=== PATIENT | female | born 1940 | race Caucasian/White ===

== ENCOUNTER → 2018-04-25 10:47 | Outpatient (CLI) | payer MEDICARE, SELFPAY ==
--- NOTE | 2018-04-25 | DI.MG.S_ITS ---
BILATERAL DIGITAL SCREENING MAMMOGRAM 3D/2D WITH CAD: 04/25/2018 CLINICAL: Routine screening. Comparison is made to exams dated: 04/18/2017 mammogram, 02/01/2016 mammogram, and 01/27/2015 mammogram - [facility]. There are scattered fibroglandular elements in both breasts. Current study was also evaluated with a Computer Aided Detection (CAD) system. There are benign calcifications in the left breast. No significant masses, calcifications, or other findings are seen in either breast. There has been no significant interval change. IMPRESSION: There is no mammographic evidence of malignancy. A 1 year screening mammogram is recommended. This exam was interpreted at Station ID: [id number]. NOTE: For mammograms, a report in lay terms will be sent to the patient. Approximately 15% of breast malignancies will not be visualized mammographically. In the management of a palpable breast mass, a negative mammogram must not discourage biopsy of a clinically suspicious lesion. Electronically Signed By: Mary de leon/merlyn:04/25/2018 16:01:54 letter sent: Normal Exam ACR BI-RADS Category 2: Benign Finding(s) 3342F
== END ==
PROVIDERS: Family Provider Family Medicine; PCP Family Medicine; Visit Provider Family Medicine
DX: Z12.31 Encounter for screening mammogram for malignant neoplasm of breast (principal)
CPT/HCPCS: 77063; 77067

== ENCOUNTER → 2019-04-10 16:21 | Outpatient (CLI) | payer MEDICARE, SELFPAY ==
--- NOTE | 2019-04-10 | DI.RAD.S_ITS ---
PROCEDURE: XR CERVICAL SPINE 2V OR 3V INDICATIONS: NECK PAIN TECHNIQUE: 3 view(s) of the cervical spine were acquired. COMPARISON: None. FINDINGS: Bones: No fractures or dislocations to the C6 level. Trace anterolisthesis of C4 on C5. Multilevel degenerative endplate sclerosis and spurring. Diffuse facet arthropathy. Mild narrowing of the C5-C6 disc space. Mild levocurvature. The lateral masses of C1 appear intact on the odontoid view. No suspicious bony lesions. Soft tissues: No prevertebral soft tissue swelling. IMPRESSION: Mild cervical spondylosis most pronounced at C5-C6. Diffuse facet arthropathy. Mild levocurvature. Dictated by: Hector Erazo M.D. on 04/11/2019 at 9:38 Approved by: Hector Erazo M.D. on 04/11/2019 at 9:41
== END ==
PROVIDERS: PCP Family Medicine; Visit Provider Family Medicine
DX: M54.2 Cervicalgia (principal); M47.812 Spondylosis without myelopathy or radiculopathy, cervical region
CPT/HCPCS: 72040

== ENCOUNTER → 2019-05-10 09:56 | Outpatient (CLI) | payer MEDICARE, SELFPAY ==
--- NOTE | 2019-05-10 | DI.MG.S_ITS ---
BILATERAL DIGITAL SCREENING MAMMOGRAM 3D/2D WITH CAD: 05/10/2019 CLINICAL: Routine screening. Comparison is made to exams dated: 04/25/2018 mammogram, 04/18/2017 mammogram, and 02/01/2016 mammogram - [facility]. There are scattered fibroglandular elements in both breasts. Current study was also evaluated with a Computer Aided Detection (CAD) system. There are benign calcifications in the left breast. No significant masses, calcifications, or other findings are seen in either breast. There has been no significant interval change. IMPRESSION: There is no mammographic evidence of malignancy. A 1 year screening mammogram is recommended. This exam was interpreted at Station ID: [id number]. NOTE: For mammograms, a report in lay terms will be sent to the patient. Approximately 15% of breast malignancies will not be visualized mammographically. In the management of a palpable breast mass, a negative mammogram must not discourage biopsy of a clinically suspicious lesion. Electronically Signed By: Roger cheng/merlyn:05/13/2019 19:18:23 letter sent: Normal Exam ACR BI-RADS Category 2: Benign Finding(s) [id number]
== END ==
PROVIDERS: PCP Family Medicine; Visit Provider Family Medicine
DX: Z12.31 Encounter for screening mammogram for malignant neoplasm of breast (principal)
CPT/HCPCS: 77063; 77067

== ENCOUNTER 2020-03-12 13:19 | Observation (INO) | payer MEDICARE, SELFPAY ==
[2020-03-12] VITALS (36 sets, daily range): BP systolic 100–171; BP diastolic 58–101; PULSE 55–143; RESP 8–36; TEMP 36.4–37.2; O2SAT 93–98; BMI 29.2
--- NOTE | 2020-03-12 13:32 | ED.ARRPALP ---
HPI - Arrhythmia/Palpitations General Chief Complaint: Arrhythmia/Palpitations Stated Complaint: heart palpitations Time Seen by Provider: 03/12/20 13:23 Source: patient Mode of arrival: Ambulatory Limitations: no limitations History of Present Illness HPI narrative: 79-year-old female without a history of atrial fibrillation. Does have a history of [id number]-txbuorncy diabetes and also high cholesterol here for evaluation of a rapid heart rate. She states that over the past several days/week she has had occasions where she feels like her heart is beating fast and skipping beats. She has not had any other symptoms associated with this to include chest pain or shortness of breath or lightheaded. She states that normally the symptoms last short period of time. She states she is not sure she is back into a normal rhythm after this but states she does not feel the fast heart rate. She went to bed last night feeling fine. Woke up this morning feeling fine and then about 0900 hours started feeling like her heart was beating fast. She denies any chest pain or shortness of breath. Was different about this episode is that it has not improved with time like prior episodes. Related Data Home Medications Medication Instructions Recorded Confirmed VITAMIN D (Vitamin D3) #0 12/26/15 lisinopril #0 12/26/15 venlafaxine [Effexor XR] #0 12/26/15 aspirin #0 08/02/17 atorvastatin [Lipitor] #0 08/02/17 metformin [Fortamet] 150 mg #0 08/02/17 Previous Rx's Medication Instructions Recorded cyclobenzaprine 5 mg PO Q8HP PRN #10 tab 12/26/15 hydrocodone-acetaminophen [[place]] 1 tab PO Q6HP PRN #10 tab 12/26/15 Allergies Allergy/AdvReac Type Severity Reaction Status Date / Time No Known Drug Allergies Allergy Verified 03/12/20 13:27 Review of Systems Constitutional Constitutional: Denies fever(s) and Denies headache(s) ENT Ears, Nose, Mouth, and Throat: Denies headache(s) Cardiovascular Cardiovascular: Denies chest pain, Reports rapid heart rate, Reports irregular heart rhythm and Denies dyspnea Respiratory Respiratory: Denies cough and Denies dyspnea Gastrointestinal Gastrointestinal: Denies abdominal pain, Denies nausea and Denies vomiting Genitourinary Genitourinary: Denies dysuria Genitourinary: Denies dysuria Musculoskeletal Musculoskeletal: Denies arthralgias and Denies myalgias Integumentary/Breasts Skin/Breast: Denies lesions and Denies rash Neurologic Neurologic: Denies behavioral changes and Denies headache(s) Psychiatric Psychiatric: Denies behavioral changes and Denies depression Patient History Medical History Diabetes (Acute) High cholesterol (Acute) Social History Smoking Status: Unknown if ever smoked Smoking Status: Unknown if ever smoked alcohol intake frequency: 0-2 drinks per day Substance Use Type: does not use Exam Initial Vital Signs Initial Vital Signs: Vital Signs Temperature 99.0 F 03/12/20 13:20 Pulse Rate 139 H 03/12/20 13:20 Respiratory Rate 16 03/12/20 13:20 Blood Pressure 139/95 H 03/12/20 13:20 Pulse Oximetry 95 03/12/20 13:20 Const General: cooperative, comfortable and well developed Limitations: mental status not altered HENAZ Head: normal to inspection and normocephalic Resp Effort & Inspection: normal respiratory effort Auscultation: clear to auscultation bilaterally Cardio Rate: tachycardic Rhythm: abnormal rhythm Pulses: radial pulses present GI Inspection: non-distended Palpation: soft Skin Lesions: no lesions Rashes: no rashes Neuro General: patient alert and patient awake Cognition: normal cognition Speech: speech normal Extrem General: normal to inspection and capillary refill normal Psych Appearance: grossly normal and well kempt Scores GCS [place] coma scale eye opening: Spontaneous [place] coma scale verbal response: Orientated [place] coma scale motor response: Obey commands [place] coma scale total score: 15 Course Orders Ordered: ED Orders 03/12/20 13:23 EKG-12 Lead Stat 03/12/20 13:28 Complete Blood Count AUTO DIFF Stat Comprehensive Metabolic Panel Stat Lipase Stat 03/12/20 14:51 COVID19 -ED/INPAT/OR/L&D Stat DILTIAZEM (Diltiazem 125 Mg/125 Ml-D5w) 125 mg in 125 mls @ 5 mls/hr IV TITRATE KARIME; Protocol Last Admin: 03/12/20 15:13 Dose: 5 mg/hr, 5 mls/hr Documented by: JOSEPH Discontinued Medications Diltiazem HCl (Cardizem) 10 mg IV NOW ONE Stop: 03/12/20 14:43 Last Admin: 03/12/20 15:12 Dose: 10 mg Documented by: JOSEPH Metoprolol Tartrate (Lopressor) 5 mg IV NOW ONE Stop: 03/12/20 13:34 Last Admin: 03/12/20 13:42 Dose: 5 mg Documented by: JOSEPH Metoprolol Tartrate (Lopressor) 25 mg PO NOW ONE Stop: 03/12/20 14:07 Last Admin: 03/12/20 14:12 Dose: 25 mg Documented by: JOSEPH Vital Signs Vital signs: Vital Signs - 8 hr 03/12/20 13:20 03/12/20 13:25 03/12/20 13:30 Temperature 99.0 F Pulse Rate 139 H 139 H 137 H Respiratory Rate 16 12 8 L Blood Pressure 139/95 H 153/84 H Pulse Oximetry 95 95 97 03/12/20 13:42 03/12/20 13:47 03/12/20 13:50 Temperature Pulse Rate 143 H 134 H 131 H Respiratory Rate 12 19 20 Blood Pressure 171/72 H 136/73 146/91 H Pulse Oximetry 95 94 96 03/12/20 13:55 03/12/20 14:00 03/12/20 14:30 Temperature Pulse Rate 128 H 129 H 124 H Respiratory Rate 14 19 Blood Pressure 146/91 H 151/64 H 153/73 H Pulse Oximetry 94 93 03/12/20 15:00 03/12/20 15:01 Temperature Pulse Rate 126 H 127 H Respiratory Rate 8 L 13 Blood Pressure 132/72 Pulse Oximetry 94 94 MDM - Arrhythmia/Palpitations Medical Records Attestation: I reviewed the patient's medical records. Lab Data Attestation: I reviewed the patient's lab results. Result diagrams: 03/12/20 13:28 03/12/20 13:28 Labs: Lab Results 03/12/20 03/12/20 Range/Units 13:28 13:28 WBC 8.4 (4.5-11.0) X10^3/uL RBC 4.45 (4.0-5.2) X10^6/uL Hgb 13.8 (12.0-16.0) g/dL Hct 41.5 (36-46) % MCV 93.2 (80-100) fL MCH 31.1 (26-34) PG MCHC 33.3 (30-36) % RDW 13.1 (11.6-14.8) % Plt Count 257 (150-400) X10^3/uL Neut % (Auto) 45.4 L (50-75) % Lymph % (Auto) 39.2 (25-40) % [place] % (Auto) 8.9 (3-14) % Eos % (Auto) 5.6 H (2-4) % Baso % (Auto) 0.9 (0-2) % Neut # (Auto) 3800 (3256-4603) /uL Lymph # (Auto) 3300 (9484-1060) /uL [place] # (Auto) 800 (0-900) /uL Eos # (Auto) 500 H (0-450) /uL Baso # (Auto) 100 (0-100) /uL Sodium 142 (137-145) mmol/L Potassium 4.1 (3.4-5.1) mmol/L Chloride 107 (98-107) mmol/L Carbon Dioxide 26 (22-32) mmol/L BUN 15 (7-17) mg/dL Creatinine 0.66 (0.52-1.04) mg/dL Estimated GFR > 60.0 (>60) mL/min BUN/Creatinine Ratio 22.7 H (6-22) Glucose 123 H (80-110) mg/dL Calcium 9.4 (8.4-10.2) mg/dL Total Bilirubin 0.3 (0.2-1.3) mg/dL AST 26 (14-36) IU/L ALT 22 (<35) IU/L Alkaline Phosphatase 83 (38-126) U/L Total Protein 7.5 (6.3-8.2) g/dL Albumin 4.4 (3.5-5.0) g/dL Globulin 3.1 (1.7-4.1) g/dL Albumin/Globulin Ratio 1.4 (1.0-2.8) Lipase 59 (23-300) U/L ECG Data Attestation: I personally reviewed and interpreted this ECG as follows: Prior ECG tracings: not available for review Interpretation: AFib Ventricular rate 133 Normal axis Normal QRS Normal QTC Nonspecific ST T wave changes MDM Narrative Medical decision making narrative: Patient arrived AFib with RVR with a rate in the 140s to 150s. Was not hypotensive. No chest pain shortness of breath or lightheadedness. Patient seems to have had symptoms off and on for the past couple days although she is not completely sure that she has been completely symptom free. She states that this morning around 0900 hours she felt like her heart was beating fast head did not improve like it normally does. She has never had atrial fibrillation in the past. She was given IV metoprolol which decreased her heart rate to the low 100s. She was then given oral metoprolol and her heart rate went back up into the 120s 130s. She remained asymptomatic other than the palpitations. She was then started on a Cardizem drip. I discussed the case with Dr. Dougherty who is on-call for the patient's primary provider. Who will admit for further evaluation and treatment. I discussed the admission with the patient. She expressed understanding and agreement. Critical Care Time Critical Care Time Critical Care Time: Yes Total Critical Care Time: 35 Attestation: The high probability of a clinically significant, sudden or life threatening deterioration of the cardiovascular system(s) required my full and direct attention, intervention and personal management. The aggregate critical care time was [35] minutes. This time is in addition to time spent performing reported procedures but includes the following: [X] Data Review and interpretation [X] Patient assessment and monitoring of vital signs [X] Documentation [X] Medication orders and management Discharge Plan Departure Patient Disposition: Admitted As Inpatient Clinical Impression: Atrial fibrillation with RVR Admit Date/Time: 03/12/20 15:03 Admit Provider: Scottie Dougherty
[2020-03-12 13:38] LABS: Add Manual Diff / Slide Review NO; Basophils Absolute Auto 100 /uL (0-100); Basophils Percent Auto 0.9 % (0-2); Eosinophils Absolute Auto 500 /uL (0-450); Eosinophils Percent Auto 5.6 % (2-4); Hematocrit 41.5 % (36-46); Hemoglobin 13.8 g/dL (12.0-16.0); Lymphocytes Absolute Auto 3300 /uL (1100-4500); Lymphocytes Percent Auto 39.2 % (25-40); Mean Corpuscular HGB Conc 33.3 % (30-36); Mean Corpuscular Hemoglobin 31.1 PG (26-34); Mean Corpuscular Volume 93.2 fL (80-100); Monocytes Absolute Auto 800 /uL (0-900); Monocytes Percent Auto 8.9 % (3-14); Neutrophils Absolute Auto 3800 /uL (1500-7000); Neutrophils Percent Auto 45.4 % (50-75); Platelet Count 257 X10^3/uL (150-400); Red Blood Cell Count 4.45 X10^6/uL (4.0-5.2); Red Cell Distribution Width 13.1 % (11.6-14.8); White Blood Cell Count 8.4 X10^3/uL (4.5-11.0)
[2020-03-12] MEDS: METOPROLOL TARTRATE 5 MG/5 ML INJ IV (13:42)
[2020-03-12 13:49] LABS: Alanine Aminotransferase 22 IU/L (<35); Albumin 4.4 g/dL (3.5-5.0); Albumin Globulin Ratio 1.4 (1.0-2.8); Alkaline Phosphatase 83 U/L (38-126); Aspartate Aminotransferase 26 IU/L (14-36); BUN Creatinine Ratio 22.7 (6-22); Bilirubin Total 0.3 mg/dL (0.2-1.3); Blood Urea Nitrogen 15 mg/dL (7-17); Calcium 9.4 mg/dL (8.4-10.2); Carbon Dioxide 26 mmol/L (22-32); Chloride 107 mmol/L (98-107); Estimated Glomerular Filt Rate > 60.0 mL/min (>60); Globulin 3.1 g/dL (1.7-4.1); Glucose 123 mg/dL (80-110); HEMOLYSIS < 15 (0-50); Lipase 59 U/L (23-300); Potassium 4.1 mmol/L (3.4-5.1); Sodium 142 mmol/L (137-145); Total Protein 7.5 g/dL (6.3-8.2)
[2020-03-12] MEDS: METOPROLOL IR 25 MG TABLET PO (14:12)
[2020-03-12] MEDS: dilTIAZem 5 MG/ML SDV 10 MG IV (15:12)
[2020-03-12] MEDS: DILTIAZEM 125 MG/125 ML PIGGYBACK IV (15:13)
[2020-03-12 16:22] LABS: COVID19 -Nasal RAPID Negative (Negative)
[2020-03-12] MEDS: SODIUM CHLORIDE 0.9% 500 ML 21 ML IV (17:27)
--- NOTE | 2020-03-12 20:03 | PC.NURSE ---
Admission Note: Pt admitted from ER for A-fib RVR, arrived on diltiazem gtts at 5 mg/hr. Pt with HR initially 90-130, now 70s-80s. Pt with VSS. RA, SPO2 96%. Denies SOB, Chest pain or pressure. Pt stood for bedside commode with HR up to 130. Pt with good uop. Denies nausea, tolerating diet. Pt otherwise with no complaints. Will continue to monitor, notify MD with changes.
--- NOTE | 2020-03-12 20:14 | P.HP_ITS ---
History of Present Illness History of Present Illness Date Patient Seen: 03/12/20 Time Patient Seen: 20:14 Date of Onset of Symptoms: 03/12/20 Chief complaint: heart palpitations Narrative: Patient a 79-year-old white female patient of Dr. Knox is her time covering for who presents today to the emergency room for increased heart rate. Palpitations. Patient has noticed over the last 2-3 weeks that she has been having intermittent palpitations. She has not had any chest pain shortness of breath fevers chills or other change. She has been feeling well. She has been walking for half an hour every day period with some hills. Without problems. She does have a history of palpitations many years ago which got worked up and was found to be negative. She also had several treadmills a few years ago which apparently were normal. She has otherwise had no cardiac disease. She has not had any fevers or chills. No cough. No shortness of breath. No orthopnea. No PND. This morning she thought it would go way like it seemed like it had been doing intermittently through the last 2-3 weeks but after 2 hours of fast heart rate she decided she would come to the hospital. It was noted she was in atrial fibrillation. She has otherwise been feeling well. She has had no other changes since she has been here patient does have history of ventricular hypertrophy per trophy in her left side but she has never felt like that is been true. Past medical history: Obstructive sleep apnea Type 2 diabetes Hypertension Hyperlipidemia GERD Depression Coronary artery disease family history Past surgical history: Bilateral tubal ligation Tonsillectomy and adenoidectomy Left bunionectomy with screw Left parotid gland mass biopsy negative Meniscus surgery bilateral knees Patient History Medical History Diabetes (Acute) High cholesterol (Acute) Family & Social History Social History: household members spouse Prior Living Arrangements House Safety & Behavioral: Feels Safe in Current Yes Environment Been Physically Hurt or No Threatened By a Person Suicidal Ideation Description None Tobacco & Substance use: Smoking Status Never smoker alcohol intake frequency 0-2 drinks per day Substance Use Type does not use Meds Home Medications and Allergies Home Medications Medication Instructions Recorded Confirmed Type VITAMIN D (Vitamin D3) 1,000 unit PO BID #0 12/26/15 03/12/20 History lisinopril 10 mg PO DAILY #0 12/26/15 03/12/20 History venlafaxine [Effexor XR] 187.5 mg PO DAILY #0 12/26/15 03/12/20 History atorvastatin [Lipitor] 10 mg PO QPM #0 08/02/17 03/12/20 History metformin [Fortamet] 150 mg PO BID #0 08/02/17 03/12/20 History vit C-vit H-Ti-Lo-lutein-zeax 1 tab PO BID 03/12/20 03/12/20 History [ICaps AREDS2 (copper citrate)] Allergies Allergy/AdvReac Type Severity Reaction Status Date / Time No Known Drug Allergies Allergy Verified 03/12/20 13:27 Review of Systems Review of Systems ROS: Yes All systems reviewed with the patient and are negative except as otherwise documented Exam Vital Signs (past 8 hours): - 03/12/20 13:20 03/12/20 13:25 03/12/20 13:30 Temperature 99.0 F Pulse Rate 139 H 139 H 137 H Respiratory Rate 16 12 8 L Blood Pressure 139/95 H 153/84 H Pulse Oximetry 95 95 97 03/12/20 13:42 03/12/20 13:47 03/12/20 13:50 Temperature Pulse Rate 143 H 134 H 131 H Respiratory Rate 12 19 20 Blood Pressure 171/72 H 136/73 146/91 H Pulse Oximetry 95 94 96 03/12/20 13:55 03/12/20 14:00 03/12/20 14:30 Temperature Pulse Rate 128 H 129 H 124 H Respiratory Rate 14 19 Blood Pressure 146/91 H 151/64 H 153/73 H Pulse Oximetry 94 93 03/12/20 15:00 03/12/20 15:01 03/12/20 15:21 Temperature Pulse Rate 126 H 127 H 90 Respiratory Rate 8 L 13 12 Blood Pressure 132/72 100/70 Pulse Oximetry 94 94 93 03/12/20 15:30 03/12/20 16:10 03/12/20 19:41 Temperature 97.8 F 97.5 F L Pulse Rate 103 H 125 H 76 Respiratory Rate 12 18 17 Blood Pressure 113/87 125/85 115/76 Pulse Oximetry 97 95 94 Oxygen Delivery Method Room Air Narrative Exam Narrative: Alert elderly female lying comfortably in bed no acute distress. HEENT exam mucous membranes moist. Eyes are unremarkable. Neck supple without adenopathy JVD or bruits. Lungs are clear. Heart is irregular rhythm with cont rolled rate no murmurs clicks rubs or gallops. Abdomen is soft positive bowel sounds nontender. Extremities without cyanosis clubbing edema. Neurologic exam is completely normal. Psychologically interactive appropriate unremarkable says skin shows no rash Objective Labs Result Diagrams: 03/12/20 13:28 03/12/20 13:28 Labs: Laboratory Results - last 24 hr 03/12/20 03/12/20 03/12/20 13:28 13:28 15:30 WBC 8.4 RBC 4.45 Hgb 13.8 Hct 41.5 MCV 93.2 MCH 31.1 MCHC 33.3 RDW 13.1 Plt Count 257 Neut % (Auto) 45.4 L Lymph % (Auto) 39.2 [place] % (Auto) 8.9 Eos % (Auto) 5.6 H Baso % (Auto) 0.9 Neut # (Auto) 3800 Lymph # (Auto) 3300 [place] # (Auto) 800 Eos # (Auto) 500 H Baso # (Auto) 100 Sodium 142 Potassium 4.1 Chloride 107 Carbon Dioxide 26 BUN 15 Creatinine 0.66 Estimated GFR > 60.0 BUN/Creatinine Ratio 22.7 H Glucose 123 H Calcium 9.4 Total Bilirubin 0.3 AST 26 ALT 22 Alkaline Phosphatase 83 Total Protein 7.5 Albumin 4.4 Globulin 3.1 Albumin/Globulin Ratio 1.4 Lipase 59 COVID-19 PCR Negative Assessment & Plan Assessment & Plan narrative: Atrial fibrillation new onset with RVR. Controlled rate with low-dose Cardizem. Will switch over to oral today and see if we can get that controlled. Switch off of IV as soon as possible. Will begin Xarelto 20 mg for stroke risk will obtain echo. Patient has had TSH and other labs no other obvious source. Will see what workup shows. I do not think will be able to convert her because it is unclear how long she has been on it will have to wait till we get her anticoagulated for 6 weeks. Will need Cardiology consult but I do not think we need that at this time. Can do that as an outpatient. She understands questions answered Type 2 diabetes. Continue current medicine. Depression. Will continue usual Effexor. Sleep apnea. Does not have usual CPAP will watch closely and follow. Code status full. DVT prophylaxis will be started on Xarelto in compression hose. GI prophylaxis not needed at this time. Disposition. Will hopefully get her off IV. May convert. Depends on how things go. May be discharged tomorrow r Quality VTE Deep Vein Thrombosis/Pulmonary Embolism Present on Admission: No
[2020-03-12] MEDS: ATORVASTATIN 20 MG TABLET 10 MG PO (21:22)
[2020-03-12] MEDS: dilTIAZem CD 120 MG CAP PO (21:22)
[2020-03-13] VITALS (31 sets, daily range): BP systolic 109–138; BP diastolic 51–87; PULSE 50–76; RESP 8–35; TEMP 36.3–36.6; O2SAT 88–97
[2020-03-13 05:02] LABS: Blood Urea Nitrogen 18 mg/dL (7-17); Calcium 9.6 mg/dL (8.4-10.2); Carbon Dioxide 34 mmol/L (22-32); Chloride 104 mmol/L (98-107); Estimated Glomerular Filt Rate > 60.0 mL/min (>60); Glucose 109 mg/dL (80-110); HEMOLYSIS < 15 (0-50); Magnesium 2.1 mg/dL (1.6-2.3); Potassium 4.8 mmol/L (3.4-5.1); Sodium 141 mmol/L (137-145)
--- NOTE | 2020-03-13 07:11 | P.PN_ITS ---
Subjective Subjective Date Patient Seen: 03/13/20 Time Patient Seen: 07:12 Interval history: Patient had an uneventful night. Rate is now controlled, in fact bradycardic. Has a good appetite this morning, no nausea or vomiting. Denies any chest pain or shortness of breath. Exam Vital Signs (past 8 hours): - 03/12/20 23:30 03/12/20 23:33 03/13/20 00:00 Temperature Pulse Rate 60 55 L 55 L Respiratory Rate 33 H Blood Pressure 136/62 Pulse Oximetry 95 97 95 03/13/20 00:01 03/13/20 00:02 03/13/20 00:30 Temperature 97.5 F L Pulse Rate 53 L 52 L 53 L Respiratory Rate 12 12 15 Blood Pressure 109/51 L 111/56 L 128/62 Pulse Oximetry 96 95 95 03/13/20 01:00 03/13/20 01:30 03/13/20 02:00 Temperature Pulse Rate 53 L 52 L 51 L Respiratory Rate 13 15 10 L Blood Pressure 120/58 L 110/56 L Pulse Oximetry 95 95 95 03/13/20 02:30 03/13/20 03:00 03/13/20 03:30 Temperature Pulse Rate 51 L 53 L 52 L Respiratory Rate 14 13 17 Blood Pressure 115/56 L Pulse Oximetry 95 93 92 03/13/20 04:00 03/13/20 05:00 03/13/20 06:00 Temperature Pulse Rate 52 L 50 L 53 L Respiratory Rate 13 8 L 13 Blood Pressure 124/56 L 130/60 128/60 Pulse Oximetry 92 Oxygen Delivery Method Room Air Oxygen Flow Rate 0 Narrative Exam Narrative: GENERAL: Alert and oriented, appearing stated age and in no acute distress. HEENT: Head normocephalic/atraumatic. Pupils equal, round, and reactive to light and accomodation. Extraocular muscles intact. Tympanic membranes clear. Nasal mucosa moist, septum midline. Oral mucosa moist, no lesions. Neck soft and supple, no lymphadenopathy. LUNGS: Clear to ausculation bilaterally, no wheezes, rhonchi or rales. CV: Irregularly irregular with bradycardic rate, no audible murmurs, rubs or gallops. ABDOMEN: Soft, non-tender, non-distended, no organomegaly. Positive bowel sounds. EXTREMITIES: No clubbing, cyanosis, or edema. NEURO: Cranial nerves II through XII grossly intact, no focal deficits. PSYCH: Alert and oriented x 3. SKIN: No concerning lesions. Objective Labs Result Diagrams: 03/12/20 13:28 03/13/20 04:22 Labs: Laboratory Results - last 24 hr 03/12/20 03/12/20 03/12/20 13:28 13:28 15:30 WBC 8.4 RBC 4.45 Hgb 13.8 Hct 41.5 MCV 93.2 MCH 31.1 MCHC 33.3 RDW 13.1 Plt Count 257 Neut % (Auto) 45.4 L Lymph % (Auto) 39.2 [place] % (Auto) 8.9 Eos % (Auto) 5.6 H Baso % (Auto) 0.9 Neut # (Auto) 3800 Lymph # (Auto) 3300 [place] # (Auto) 800 Eos # (Auto) 500 H Baso # (Auto) 100 Sodium 142 Potassium 4.1 Chloride 107 Carbon Dioxide 26 BUN 15 Creatinine 0.66 Estimated GFR > 60.0 BUN/Creatinine Ratio 22.7 H Glucose 123 H Calcium 9.4 Magnesium Total Bilirubin 0.3 AST 26 ALT 22 Alkaline Phosphatase 83 Total Protein 7.5 Albumin 4.4 Globulin 3.1 Albumin/Globulin Ratio 1.4 Lipase 59 COVID-19 PCR Negative 03/13/20 04:22 WBC RBC Hgb Hct MCV MCH MCHC RDW Plt Count Neut % (Auto) Lymph % (Auto) [place] % (Auto) Eos % (Auto) Baso % (Auto) Neut # (Auto) Lymph # (Auto) [place] # (Auto) Eos # (Auto) Baso # (Auto) Sodium 141 Potassium 4.8 Chloride 104 Carbon Dioxide 34 H BUN 18 H Creatinine 0.72 Estimated GFR > 60.0 BUN/Creatinine Ratio 25.0 H Glucose 109 Calcium 9.6 Magnesium 2.1 Total Bilirubin AST ALT Alkaline Phosphatase Total Protein Albumin Globulin Albumin/Globulin Ratio Lipase COVID-19 PCR Assessment & Plan Assessment & Plan narrative: 1. Atrial fibrillation new onset with RVR. -On cardizem drip -Xarelto 20 mg for stroke risk -Echo pending today. PLAN: As above, will switch from IV to oral cardizem today, if rate controlled, plan for discharge. Will need outpatient cardiac followup with possible planned cardioversion after 6 weeks of anticoagulation. 2. Type 2 diabetes. PLAN: Continue current medicine. 3. Hyperlipidemia PLAN: Continue home atorvastatin. 4. Depression. PLAN: Will continue usual Effexor. 5. Obstructive sleep apnea. PLAN: Does not have usual CPAP will watch closely and follow. Code status: full DVT prophylaxis: Xarelto and compression stockings. GI prophylaxis: Not needed at this time. Disposition. Hopeful for discharge today if echo reassuring and rate able to be controlled. Quality VTE Deep Vein Thrombosis/Pulmonary Embolism Present on Admission: No
[2020-03-13] MEDS: RIVAROXABAN 10 MG TABLET 20 MG PO (10:08)
[2020-03-13] MEDS: METFORMIN HCL 500 MG TABLET PO ×2 (10:10→17:05)
[2020-03-13] MEDS: dilTIAZem 30 MG TABLET PO ×2 (10:46→14:51)
[2020-03-13] MEDS: VENLAFAXINE ER 37.5 MG CAP 187.5 MG PO (10:46)
--- NOTE | 2020-03-13 12:38 | PC.NURSE ---
AM Shift Pt is comfortable in bed, tele with SB, as it has been though the night. Converted ~10pm last night per report, cardizem gtt has been off. D/t HR, new orders obtained for lower dose of carrdizem PO. Tolerating lower dose well, rate 60's at rest. Denies chest pain, no sob. Fitted for MJ hose. Echo done at bedside. Awaiting results. Indep in room.
--- NOTE | 2020-03-13 16:26 | CM.DANOTE ---
Discharge Planning/Care Management DCP: assessment: case received, EMR reviewed. Discussed in Team Rounds. Pt is a 79 year old female who admitted to care of Dr. Cohn. PCP: Dr. Philip Garcia of same clinic. Payer; Medicare and [employer]. Admission status: OBS: per [facility] GALI Nelson. Pt admitted for new onset AFib/RVR. Tests have been in process today. Pt has been up and independent in her room. Anticipate Dr. Dougherty may be in after clinic today to update pt on POC going forward. Caseload triage dictates need to defer any further assessment to DCplanning team on tomorrow, if pt has not d/c'd by then. CM Discharge Assessment Start: 03/13/20 16:25 Freq: Status: Active Protocol: Document 03/13/20 16:25 ITV (Rec: 03/13/20 16:26 ITV [id number]) Discharge Planning Assessment Advance Directives? Yes Advance Directives on File No: Requested that pt asks to bring them in History Provided By Medical Record Prior Living Arrangements House Household Members spouse Independent with ADL's Yes Is patient alert and oriented? Yes Review Status In Process
--- NOTE | 2020-03-13 17:49 | P.DS_ITS ---
History of Present Illness History of Present Illness Date Patient Seen: 03/13/20 Time Patient Seen: 17:55 Chief complaint: heart palpitations Narrative: Patient is a 79-year-old white female patient of Dr. Garcia'raheem who presents today to the emergency room for increased heart rate with palpitations. Patient has noticed over the last 2-3 weeks that she has been having intermittent palpitations. She has not had any chest pain shortness of breath fevers chills or other change. She has been feeling well. She has been walking for half an hour every day with some hills and without problems. She does have a history of palpitations many years ago which got worked up and was found to be negative. She also had several treadmills a few years ago which apparently were normal. She has otherwise had no cardiac disease. She has not had any fevers or chills. No cough. No shortness of breath. No orthopnea. No PND. This morning she thought it would go way like it seemed like it had been doing intermittently through the last 2-3 weeks but after 2 hours of fast heart rate she decided she would come to the hospital. It was noted she was in atrial fibrillation. She has otherwise been feeling well. She has had no other changes since she has been here patient does have history of ventricular hypertrophy on her left side but she has never felt like that was true. Discharge Providers Provider Date of admission: 03/12/20 15:03 Discharge Date: 03/13/20 Primary care physician: Elizabeth Garcia MD Discharge provider: Lynette Reis MD Summary Hospital Course Discharge Diagnosis: 1. Atrial fibrillation with RVR, resolved 2. Type 2 diabetes 3. Hyperlipidemia 4. Depression. 5. Obstructive sleep apnea. Hospital Course: Patient converted last night at approximately 10:00 pm and has been in sinus rhythm since that time. Oral diltiazem 120 mg ER was started last night, was changed to diltiazem IR 30 mg PO tid this morning due to bradycardia into the 40s. She has had no further low heart rates on this dose and blood pressure is stable. She will be discharged on this as well as xarelto 20 mg PO qd. Lisinopril was discontinued. Ehco was unremarkable. Plan will be for outpatient follow-up in [address] Garcia. Exam Vital Signs (past 8 hours): - 03/13/20 09:55 10/09/20 10:00 03/13/20 11:00 Temperature Pulse Rate 62 62 61 Respiratory Rate Blood Pressure 118/60 134/65 Pulse Oximetry 93 92 94 03/13/20 11:55 03/13/20 12:00 03/13/20 12:55 Temperature 97.5 F L Pulse Rate 61 61 76 Respiratory Rate Blood Pressure 138/66 Pulse Oximetry 95 94 94 03/13/20 13:00 03/13/20 13:55 03/13/20 14:00 Temperature Pulse Rate 63 63 62 Respiratory Rate Blood Pressure 135/60 133/65 Pulse Oximetry 96 92 93 03/13/20 14:51 03/13/20 16:00 Temperature 97.9 F Pulse Rate 66 63 Respiratory Rate 18 Blood Pressure 122/87 127/59 L Pulse Oximetry Oxygen Delivery Method Room Air Oxygen Flow Rate 0 Narrative Exam Narrative: GENERAL: Alert and oriented, appearing stated age and in no ac nadine distress. HEENT: Head normocephalic/atraumatic. Pupils equal, round, and reactive to light and accomodation. Extraocular muscles intact. Tympanic membranes clear. Nasal mucosa moist, septum midline. Oral mucosa moist, no lesions. Neck soft and supple, no lymphadenopathy. LUNGS: Clear to ausculation bilaterally, no wheezes, rhonchi or rales. CV: Irregularly irregular with bradycardic rate, no audible murmurs, rubs or gallops. ABDOMEN: Soft, non-tender, non-distended, no organomegaly. Positive bowel sounds. EXTREMITIES: No clubbing, cyanosis, or edema. NEURO: Cranial nerves II through XII grossly intact, no focal deficits. PSYCH: Alert and oriented x 3. SKIN: No concerning lesions. Objective Labs Result Diagrams: 03/12/20 13:28 03/13/20 04:22 Labs: Laboratory Results - last 24 hr 03/13/20 04:22 Sodium 141 Potassium 4.8 Chloride 104 Carbon Dioxide 34 H BUN 18 H Creatinine 0.72 Estimated GFR > 60.0 BUN/Creatinine Ratio 25.0 H Glucose 109 Calcium 9.6 Magnesium 2.1 Discharge Plan Discharge Plan Patient Disposition: Home Discharge orders & Medications Prescriptions: New diltiazem HCl 30 mg Tablet 30 mg PO TID Qty: 90 RF: 1 Xarelto 10 mg Tablet 20 mg PO DAILYCC Qty: 7 RF: 3 Continued venlafaxine [Effexor XR] 150 MG capsule,extended release 24hr 187.5 mg PO DAILY Qty: 0 RF: 0 VITAMIN D (Vitamin D3) 1,000 unit PO BID Qty: 0 RF: 0 atorvastatin [Lipitor] 10 MG tablet 10 mg PO QPM Qty: 0 RF: 0 metformin [Fortamet] 500 MG tablet extended release 24hr 500 mg PO BID Qty: 0 RF: 0 ICaps AREDS2 (copper citrate) 250 mg-200 unit -12.5 mg-1 mg Tablet 1 tab PO BID RF: 0 Discontinued lisinopril 10 MG tablet 10 mg PO DAILY Qty: 0 RF: 0 Follow up/Referrals: Elizabeth Garcia MD [Primary Care Provider] - Diet/Activity/Treatments Diet: Diet as Tolerated Activity: as tolerated Other treatments: Call if heart rate < 50. Return to ED for recurrent palpitations. Skin/Wound/Dressing Care Report to your healthcare provider any signs of infection, such as:: chills, fever and increased pain Visit Report/Discharge Packet Instructions: DI for Atrial Fibrillation, Rivaroxaban Visit Report Forms: Patient Portal/API, Stroke Signs & Symptoms Discharge Data Primary Care Provider: Elizabeth Garcia Attending Provider: Scottie Dougherty Admit Date/Time: 03/12/20 15:03 Quality VTE Deep Vein Thrombosis/Pulmonary Embolism Present on Admission: No
--- NOTE | 2020-03-13 19:36 | PC.NURSE ---
Discharge Note: Pt recieved sitting in bed, VSS, in NSR with HR 60s. BP WNL. Pt was on RA, SPO2 mid 90s, denied SOB, chest pain, pressure or palpitations. Pt tolerating meal, denies nausea. Pt expresses desire to be discharged home, she states that she is feeling well and has no concerns. Dr. Reis called pt and spoke to her on the phone prior to pt's discharge. Discharge orders received and pt given discharge instructions re atrial fibrillation, new medications, follow up, stroke symptoms and safety precautions at home. Pt instructed to call Dr. Reis if her HR was less than 50, to call Monday am for a follow-up appointment with Dr. Garcia, and instructed to call 911 if she were to feel sustained palpitations. Also given instructions on diet, activity and life-style modification. Pt's IV removed, telemetry removed and pt helped to ER entrance via wheelchair.
--- NOTE | 2020-03-13 20:14 | DI.ECHO.S_ITS ---
[facility]---------+ [facility] +---------+ : : [address] : [place] : : : : [id number] : : : : Phone: [phone]+ Echocardiogram Report + + :Name: MAYURI SERRATO Study Date: 03/13/2020 Height: 63 in : :[facility] Weight: 165 lb : : Gender: Female BSA: 1.8 m2 : :: 1940 Age: 79 yrs BP: 134/65 mmHg: :Reason For Study: Atrial fibrillation : :Ordering Physician: Scottie : :Ladonna Performed By: Esperanza Cook : + + Interpretation Summary The left ventricle is normal in size. The ejection fraction is estimated to be 60-65%. The right ventricle is normal in size and function. No significant valvular pathology seen. Mild atherosclerotic plaque(s) in the aortic arch. Procedure: A two-dimensional transthoracic echocardiogram with color flow and Doppler was performed. The study quality was technically adequate. Comparison is made with the echocardiogram of 08/05/2011. The patient was in normal sinus rhythm during the exam. Left Ventricle: The left ventricle is normal in size. Left ventricular wall thickness is at the upper limits of normal. There is no thrombus. The ejection fraction is estimated to be 60-65%. There has been no significant change since the previous exam. There are no focal wall motion abnormalities. Diastolic parameters suggest a relaxation abnormality of the left ventricle, consistent with probable normal filling pressures. Right Ventricle: The right ventricle is normal in size and function. Atria: Both atria are normal in size. Both atria have remained unchanged in size since the prior echo exam. There is no Doppler evidence for an interatrial shunt. Mitral Valve: The mitral valve leaflets appear borderline thickened, but open well. There is mild mitral annular calcification. There is trace mitral regurgitation. Aortic Valve: The aortic valve is trileaflet. The aortic valve opens well. The aortic valve is slightly calcified. There is no aortic valve stenosis. No aortic regurgitation is present. Tricuspid Valve: The tricuspid valve leaflets are thin and pliable. There is a trace or physiologic amount of tricuspid regurgitation. The right ventricular systolic pressure is estimated to be at least 26 mmHg based on an estimated right atrial pressure of 3 mm Hg. Pulmonic Valve: The pulmonic valve leaflets are thin and pliable; valve motion is normal. There is a trace or physiologic amount of pulmonic regurgitation. Great Vessels: The aortic root is normal size. The ascending aorta is normal in size. The aortic arch is normal in size. Mild atherosclerotic plaque(s) in the aortic arch. The IVC is of normal diameter and collapses greater than 50% with a sniff. This suggests a low right atrial pressure of 3 mm Hg. Pericardium/ Pleura There is no pericardial effusion. There is no pleural effusion. MMode/2D Measurements & Calculations LVIDd: 4.8 cm LVOT diam: 2.0 cm LVIDs: 3.2 cm Ao root diam: 3.7 cm FS: 34.6 % Aortic Jxn: 2.9 cm EPSS: 0.23 cm asc Aorta Diam: 3.2 cm IVSd: 1.0 cm Ao Arch Diam (Prox Trans): 2.5 cm LVPWd: 0.91 cm LV hilton. diameter/BSA (cm/m^2): 2.7 LV sys. diameter/BSA (cm/m^2): 1.8 LA A2 area: 16.2 cm2 RA long axis: 4.7 cm LA A4 area: 19.8 cm2 RA area: 15.4 cm2 LA length (vol): 6.0 cm RA vol: 43.1 ml LA vol: 45.3 ml RA : 24.2 ml/m2 LA vol index: 25.4 ml/m2 IVC diam: 1.9 cm RVD1 (basal): 2.9 cm RVD2 (mid): 2.2 cm TAPSE: 2.1 cm Doppler Measurements & Calculations Ao V2 max: 131.9 cm/sec LVOT Max Zachary: 100.4 cm/sec Ao V2 mean: 94.3 cm/sec LV V1 max P.0 mmHg Ao max P.0 mmHg LV V1 VTI: 21.2 cm Ao mean P.9 mmHg RYNE(I,D): 2.3 cm2 Ao V2 VTI: 29.1 cm RYNE(V,D): 2.4 cm2 sev ratio: 0.73 RYNE indexed to BSA (cm^2/m^2): 1.3 MV E max zachary: 75.0 cm/sec TR max zachary: 240.1 cm/sec MV A max zachary: 81.1 cm/sec TR max P.1 mmHg MV E/A: 0.92 PA V2 max: 72.8 cm/sec Med Peak E' Zachary: 7.6 cm/sec PA V2 mean: 55.2 cm/sec E/E' med: 9.8 PA mean P.3 mmHg Lat Peak E' Zcahary: 7.4 cm/sec PA Accel Time: 0.11 sec E/E' lat: 10.2 E/e' average: 10.0 MV dec time: 0.27 sec MV P1/2t: 79.8 msec MV P1/2t max zachary: 75.4 cm/sec SV(LVOT): 68.2 ml MVA(P1/2t): 2.8 cm2 Reading Physician:02:39 PM
== END 2020-03-13 18:30 | disposition home or self-care (01) ==
LOC: ED 15:03 → AC 15:07 → ICU 03-13 12:18 → AC 03-13 12:25 → ICU 03-13 12:26 → AC 03-13 15:16 → ICU 03-13 15:16
PROVIDERS: Admitting Provider Family Medicine; Emergency Provider Emergency Medicine; PCP Family Medicine; Referring Provider Emergency Medicine; Visit Provider Family Medicine
DX: I48.91 Unspecified atrial fibrillation (principal); R00.2 Palpitations; E11.9 Type 2 diabetes mellitus without complications; Z79.84 Long term (current) use of oral hypoglycemic drugs; E78.00 Pure hypercholesterolemia, unspecified; F32.9 Major depressive disorder, single episode, unspecified; G47.33 Obstructive sleep apnea (adult) (pediatric); Z11.59 Encounter for screening for other viral diseases
CPT/HCPCS: 36415; 80048; 80053; 83690; 83735; 85025; 87635; 93005; 93306; 96365; 96366; 96375; 99284; 99291; G0378

== ENCOUNTER → 2020-06-09 16:05 | Outpatient (CLI) | payer MEDICARE, SELFPAY ==
[2020-03-12 15:55] VITALS: BMI 29.2
--- NOTE | 2020-06-09 16:08 | DI.MG.S_ITS ---
BILATERAL DIGITAL SCREENING MAMMOGRAM 3D/2D WITH CAD: 06/09/2020 CLINICAL: Routine screening. Comparison is made to exams dated: 05/10/2019 mammogram, 04/25/2018 mammogram, and 04/18/2017 mammogram - [facility]. There are scattered fibroglandular elements in both breasts. Current study was also evaluated with a Computer Aided Detection (CAD) system. There are benign calcifications in the left breast. No significant masses, calcifications, or other findings are seen in either breast. There has been no significant interval change. IMPRESSION: BENIGN There is no mammographic evidence of malignancy. A 1 year screening mammogram is recommended. This exam was interpreted at Station ID: [id number]. NOTE: For mammograms, a report in lay terms will be sent to the patient. Approximately 15% of breast malignancies will not be visualized mammographically. In the management of a palpable breast mass, a negative mammogram must not discourage biopsy of a clinically suspicious lesion. Electronically Signed By: Tang lomas/merlyn:06/09/2020 16:49:08 letter sent: Normal Exam ACR BI-RADS Category 2: Benign Finding(s) 3342F
== END ==
PROVIDERS: PCP Family Medicine; Referring Provider Family Medicine; Visit Provider Family Medicine
DX: Z12.31 Encounter for screening mammogram for malignant neoplasm of breast (principal)
CPT/HCPCS: 77063; 77067

== ENCOUNTER → 2020-06-15 11:01 | Outpatient (CLI) | payer MEDICARE, SELFPAY ==
[2020-03-12 15:55] VITALS: BMI 29.2
[2020-06-15 13:13] LABS: COVID19 -Nasal RAPID Negative (Negative)
== END ==
PROVIDERS: PCP Family Medicine; Visit Provider Physician Assistant
DX: Z01.812 Encounter for preprocedural laboratory examination (principal); Z20.822 Contact with and (suspected) exposure to COVID-19
CPT/HCPCS: 87635; C9803

== ENCOUNTER 2020-06-17 07:21 | Day surgery (SDC) | payer MEDICARE, SELFPAY ==
[2020-03-12 15:55] VITALS: BMI 29.2
--- NOTE | 2020-06-16 12:08 | PM.PREOP ---
Pre-operative Note COVID-19 COVID-19 status: Negative Interval Note History & Physical reviewed/Exam performed by Physician: Yes Changes to H&P: No H&P completed within 30 days and has changed as indicated here:: Glucose checked fasting AM of surgery and is 112.
--- NOTE | 2020-06-17 07:30 | P.OP_ITS ---
Operative Date/Time/Diagnoses Date of procedure: 06/17/20 Time of procedure: 09:45 Procedure & Clinicians Procedure: Preoperative diagnoses: 1. Right nuclear sclerotic and cortical cataract. 2. Glaucoma suspect 3. Diabetes without retinopathy. 4. Sleep apnea with CPAP use 5. Atrial fibrillation Xarelto use. Stop for 3 days for surgery. Postoperative diagnoses: 1. Cataract removed by phacoemulsification with placement of posterior chamber intraocular lens. Procedure: Phacoemulsification with posterior chamber intraocular lens implant Surgeon: Lissa Benitez MD Complications: None Specimen: None Implant: [id number]+23.5 Blood loss: None Anesthesia: Retrobulbar with monitored standby Description of procedure: Patient presents with a complaint of decreased vision due to cataract which is affecting activities of daily living both distance and near. She is also a glaucoma suspect and cataract surgery will improve her risk due to a borderline narrow angle. She is a controlled diabetic and stable for surgery she understands the risk of surgery during COVID-19 epidemic and wishes to proceed. She has tested negative prior to the procedure. The patient wants surgery to improve vision. The patient was taken to the operating room and given IV sedation. A retrobulbar block consisting of 6 cc of 2% xylocaine without epinephrine mixed half and half with 0.5% Marcaine with 1 cc of hyaluronidase added is placed between the medial and lateral 1/3 of the inferior orbital rim. The eye is manually massaged for 30 sec, prepped using Betadine solution, and draped in the usual sterile fashion. Temporal approach was made, a 1 mm side-port incision was made 90? from the proposed clear corneal incision position. Phenylephrine 1.5% mixed with 1% xylocaine 0.2 cc was placed into the anterior chamber. Viscoat followed by Leonor was then placed. A 2.6 mm clear incision with a 2.6 mm blade was placed. A 360 degree capsulorrhexis style capsulotomy was then performed with a cystitome needle on a Healon. Hydrodelineation and hydrodissection were performed. The phacoemulsification unit is introduced, and sculpting notice used to groove the central lens. It is then removed in chopping mode. Epi nucleus is removed with epinuclear mode and irrigation aspiration was used to remove the peripheral cortex. The posterior capsule is polished. The intraocular lens is selected, inspected, power confirmed, and placed in the posterior chamber. extra viscoelastic was placed as there was a small outer epinuclear remnant it and this was then removed.The wound was stromally hydrated and tested for leaks, there was none and it was left sutureless. Vigamox 0.1 cc was placed into the anterior chamber. Kenalog 0.2 cc was placed in the superior subconjunctival space. A drop of antibiotic and was placed and the eye was patched and shielded. The patient was stable and returned to the recovery room in excellent condition. Dictated by: Lissa Benitez MD Copy to: [facility] Same procedure as scheduled: Yes
[2020-06-17 08:00] VITALS: BP 155/88; PULSE 60; RESP 16; TEMP 37.2; O2SAT 97
[2020-06-17] MEDS: PROPARACAINE 0.5% OPHTH SOL 2 DROPS EYE-OP (08:04)
[2020-06-17 08:07] VITALS: BMI 29.2
[2020-06-17] MEDS: CATARACT EYE COMPOUND (10 DROPS/SYRINGE) 3 DROPS EYE-OP (08:07)
[2020-06-17] MEDS: CHONDROIDTIN/SOD HYALURONATE 1.05 ML SYRINGE INTRAOCULA (09:15)
[2020-06-17] MEDS: ERYTHROMYCIN OPHTH 1 GM OINT 1 APPLIC EYE-RIGHT (09:15)
[2020-06-17] MEDS: HYALURONATE SODIUM 10 MG/ML SYRINGE INJ (09:16)
[2020-06-17] MEDS: PHENYLEPHRINE/LIDOCAINE VIAL (OR) 0.2 ML EYE-OP (09:16)
[2020-06-17] MEDS: TRIAMCINOLONE 50 MG/5 ML VIAL INJ (09:16)
[2020-06-17] MEDS: MOXIFLOXACIN INJ 5 MG/ML VIAL EYE-OP (09:16)
[2020-06-17] MEDS: BALANCED SALT IRRIG SOLN NO.2 500 ML, EPINEPHrine 1 MG IRR (09:17)
[2020-06-17] MEDS: LIDOCAINE 2% 4 ML, BUPIVACAINE 0.5% (PF) 4 ML, HYALURONIDASE 150 UNIT INJ (09:17)
[2020-06-17 09:50] VITALS: BP 163/74; PULSE 64; RESP 17; TEMP 36; O2SAT 95
[2020-06-17 10:12] VITALS: BP 150/75; PULSE 60; RESP 17; TEMP 36.4; O2SAT 95
== END 2020-06-17 10:21 | disposition home or self-care (01) ==
LOC: OR 07:27
PROVIDERS: PCP Family Medicine; Referring Provider Ophthalmology; Visit Provider Ophthalmology
PROC: (CPT 66984; principal; 2020-06-17 08:45)
DX: H25.811 Combined forms of age-related cataract, right eye (principal); H40.009 Preglaucoma, unspecified, unspecified eye; H40.013 Open angle with borderline findings, low risk, bilateral; H35.3131 Nonexudative age-related macular degeneration, bilateral, early dry stage; E11.9 Type 2 diabetes mellitus without complications; G47.30 Sleep apnea, unspecified; I48.91 Unspecified atrial fibrillation; Z79.01 Long term (current) use of anticoagulants; Z79.84 Long term (current) use of oral hypoglycemic drugs
CPT/HCPCS: 66984; 82962; J0171; J2704; J3301; J3470

== ENCOUNTER → 2020-06-29 08:44 | Outpatient (CLI) | payer MEDICARE, SELFPAY ==
[2020-03-12 15:55] VITALS: BMI 29.2
[2020-06-29 10:51] LABS: COVID19 -Nasal RAPID Negative (Negative)
== END ==
PROVIDERS: PCP Family Medicine; Visit Provider Physician Assistant
DX: Z20.822 Contact with and (suspected) exposure to COVID-19 (principal)
CPT/HCPCS: 87635; C9803

== ENCOUNTER 2020-07-01 06:50 | Day surgery (SDC) | payer MEDICARE, SELFPAY ==
[2020-03-12 15:55] VITALS: BMI 29.2
--- NOTE | 2020-06-30 17:07 | PM.PREOP ---
Pre-operative Note COVID-19 COVID-19 status: Negative Interval Note History & Physical reviewed/Exam performed by Physician: Yes Changes to H&P: No H&P completed within 30 days and has changed as indicated here:: Fasting glucose is about 102.
--- NOTE | 2020-07-01 07:30 | PM.OP.1 ---
Operative Date/Time/Diagnoses Date of procedure: 07/01/20 Time of procedure: 08:45 Procedure & Clinicians Procedure: Preoperative diagnoses: 1. Left nuclear sclerotic and cortical cataract. 2. Diabetes without retinopathy. 3. Atrial fibrillation on chronic anticoagulation with Xarelto 4. Hypertension. 5. sleep apnea with use of CPAP machine. Postoperative diagnoses: 1. Cataract removed by phacoemulsification with placement of posterior chamber intraocular lens. Procedure: Phacoemulsification with posterior chamber intraocular lens implant Surgeon: Lissa Benitez MD Complications: None Specimen: None Implant: ZCBOO+23.5 Blood loss: None Anesthesia: Retrobulbar with monitored standby Description of procedure: Patient presents with a complaint of decreased vision due to cataract which is affecting activities of daily living. She is a controlled diabetic. Vision is decreased distance and near. She understands the extra risk of operation during the COVID-19 epidemic and wishes to proceed. She has tested negative for active virus prior to the surgery. The patient wants surgery to improve vision. The patient was taken to the operating room and given IV sedation. A retrobulbar block consisting of 6 cc of 2% xylocaine without epinephrine mixed half and half with 0.5% Marcaine with 1 cc of hyaluronidase added is placed between the medial and lateral 1/3 of the inferior orbital rim. The eye is manually massaged for 30 sec, prepped using Betadine solution, and draped in the usual sterile fashion. Temporal approach was made, a 1 mm side-port incision was made 90? from the proposed clear corneal incision position. Phenylephrine 1.5% mixed with 1% xylocaine 0.2 cc was placed into the anterior chamber. Viscoat followed by Leonor was then placed. A 2.6 mm clear incision with a 2.6 mm blade was placed. A 360 degree capsulorrhexis style capsulotomy was then performed with a cystitome needle on a Healon. Hydrodelineation and hydrodissection were performed. The phacoemulsification unit is introduced, and sculpting notice used to groove the central lens. It is then removed in chopping mode. Epi nucleus is removed with epinuclear mode and irrigation aspiration was used to remove the peripheral cortex. The posterior capsule is polished. The intraocular lens is selected, inspected, power confirmed, and placed in the posterior chamber. The wound was stromally hydrated and tested for leaks, there was none and it was left sutureless. Vigamox 0.1 cc was placed into the anterior chamber. Kenalog 0.2 cc was placed in the superior subconjunctival space. A drop of antibiotic and was placed and the eye was patched and shielded. The patient was stable and returned to the recovery room in excellent condition. Dictated by: Lissa Benitez MD Copy to: [facility] Same procedure as scheduled: Yes
[2020-07-01] MEDS: PROPARACAINE 0.5% OPHTH SOL 2 DROPS EYE-OP (07:44)
[2020-07-01 07:47] VITALS: BP 172/74; PULSE 60; RESP 16; TEMP 36.8; O2SAT 95; BMI 29.2
[2020-07-01] MEDS: CATARACT EYE COMPOUND (10 DROPS/SYRINGE) 3 DROPS EYE-OP (08:02)
[2020-07-01] MEDS: ERYTHROMYCIN OPHTH 1 GM OINT 1 APPLIC EYE-LEFT (09:13)
[2020-07-01] MEDS: CHONDROIDTIN/SOD HYALURONATE 1.05 ML SYRINGE INTRAOCULA (09:13)
[2020-07-01] MEDS: PHENYLEPHRINE/LIDOCAINE VIAL (OR) 0.2 ML EYE-OP (09:15)
[2020-07-01] MEDS: TRIAMCINOLONE 50 MG/5 ML VIAL INJ (09:15)
[2020-07-01] MEDS: HYALURONATE SODIUM 10 MG/ML SYRINGE INJ (09:15)
[2020-07-01] MEDS: MOXIFLOXACIN INJ 5 MG/ML VIAL EYE-OP (09:15)
[2020-07-01] MEDS: LIDOCAINE 2% 4 ML, BUPIVACAINE 0.5% (PF) 4 ML, HYALURONIDASE 150 UNIT INJ (09:16)
[2020-07-01] MEDS: BALANCED SALT IRRIG SOLN NO.2 500 ML, EPINEPHrine 1 MG IRR (09:16)
[2020-07-01 09:44] VITALS: BP 152/78; PULSE 57; RESP 16; TEMP 36.3; O2SAT 99
[2020-07-01 10:12] VITALS: BP 152/73; PULSE 63; TEMP 36.4; O2SAT 95
== END 2020-07-01 10:13 | disposition home or self-care (01) ==
LOC: OR 06:51
PROVIDERS: PCP Family Medicine; Referring Provider Family Medicine; Visit Provider Ophthalmology
PROC: (CPT 66984; principal; 2020-07-01 08:45)
DX: H25.812 Combined forms of age-related cataract, left eye (principal); E11.9 Type 2 diabetes mellitus without complications; I48.91 Unspecified atrial fibrillation; Z79.01 Long term (current) use of anticoagulants; I10 Essential (primary) hypertension; G47.30 Sleep apnea, unspecified; Z79.84 Long term (current) use of oral hypoglycemic drugs
CPT/HCPCS: 66984; 82962; J0171; J2704; J3301; J3470

== ENCOUNTER 2020-07-22 08:31 | Emergency (ER) | payer MEDICARE, SELFPAY ==
[2020-03-12 15:55] VITALS: BMI 29.2
[2020-07-22 08:35] VITALS: BP 192/88; PULSE 66; RESP 16; TEMP 36.2; O2SAT 98; BMI 28.3
--- NOTE | 2020-07-22 08:36 | ED_ITS ---
HPI - Fall General Chief Complaint: Fall Stated Complaint: GLF Time Seen by Provider: 07/22/20 08:35 Source: patient and EMS Mode of arrival: EMS Limitations: no limitations History of Present Illness HPI Narrative: This is a pleasant 79-year-old female comes emergency department after having a ground level fall. Patient was walking her dog she saw some ice and was attempting to move over to the snow when she slipped and fell. She states she laid on the snow for several minutes before she was able to stand up and walk back to the house and contact 911 for help. She states she did not hit her head. Her only complaint is pain in her left upper extremity. She states her whole arm was hanging and felt numb initially. She does feel sensation in her hand and can wiggle and move her fingers. She describes her pain only has 1/10 but has not been attempting to move her arm. She denies any neck or back pain. No chest pain, no shortness of breath. No nausea or vomiting. No numbness, tingling, weakness otherwise. She does feel like her left arm is rotated different than it appears visually. She does have a history of atrial fibrillation and is on Xarelto as well as diltiazem and takes metformin for diabetes and a statin. She denies any tobacco, occasional alcohol but none recently and no illicit. She states she has had bunionectomy but denies any other major surgical events. Related Data Home Medications Medication Instructions Recorded Confirmed VITAMIN D (Vitamin D3) 1,000 unit PO BID #0 12/26/15 07/01/20 venlafaxine [Effexor XR] 187.5 mg PO DAILY #0 12/26/15 07/01/20 atorvastatin [Lipitor] 10 mg PO QPM #0 08/02/17 07/01/20 metformin [Fortamet] 500 mg PO BID #0 08/02/17 07/01/20 ICaps AREDS2 (copper citrate) 1 tab PO BID 03/12/20 07/01/20 Previous Rx's Medication Instructions Recorded diltiazem HCl 30 mg PO TID #90 tab 03/13/20 rivaroxaban [Xarelto] 20 mg PO DAILYCC #7 tab 03/13/20 hydrocodone-acetaminophen [Greenback] 1 tab PO Q6H PRN #14 tab 07/22/20 Allergies Allergy/AdvReac Type Severity Reaction Status Date / Time No Known Drug Allergies Allergy Verified 07/22/20 08:38 Review of Systems Review of Systems ROS Unobtainable: All systems reviewed & are unremarkable except as noted in HPI and below Patient History Medical History (Updated 07/22/20 @ 09:37 by Clarice Bonilla DO) Diabetes High cholesterol Social History household members: spouse Smoking Status: Never smoker alcohol intake: current Smoking Status: Never smoker alcohol intake frequency: a few times a week Substance Use Type: does not use Exam Narrative Exam Narrative: GEN: Patient appears in mild distress. HEAD: No evidence of trauma, no raccoon/Monsalve sign. NECK: Nontender, painless range of motion, trachea midline Negative for Nexus criteria, there is no mid line tenderness, distracting injury, altered mental status, neuro deficit, recent EtOH. EYES: PERRLA, EOMI ENT: External inspection normal, trachea is midline, no dental or oral injury, airway is normal and with normal occlusion, No bony tenderness RESP: Chest is nontender and has symmetric movement, no ecchymosis, breath sounds are normal no crackles, wheezes or rales CVS: Heart sounds are normal, no murmur noted, No JVD. ABG/GI: Nontender, soft, normal bowel sounds, no distention, no organomegaly, pelvic rock is negative NEURO: Oriented AOx3, neuro is grossly intact, sensation and motor is normal all 4 extremities moving, cranial nerves II through XII are intact, GCS is 15 PSYCH: Normal mood and affect SKIN: Intact, warm and dry, no crepitus and without decubitus BACK: No CVA tenderness, no vertebral tenderness, no step-off's, no crepitus EXT: right hand dominant. Patient's left upper extremity is sling she has tenderness of the mid shaft of the left humerus, no bony tenderness of the clavicle, scapula, AC joint, elbow forearm or hand. She has 2+ radial pulse with equal senior oracle dba bilaterally. She has full extension flexion of her wrist as well as fingers with no weakness appreciated, normal sensation throughout the arm to light touch, hips are nontender, no pedal edema, normal color and temperature, normal range of motion of extremities with normal tendon exam, 2+ pulses in all four extremities Initial Vital Signs Initial Vital Signs: Vital Signs Temperature 97.2 F L 07/22/20 08:35 Pulse Rate 66 07/22/20 08:35 Respiratory Rate 16 07/22/20 08:35 Blood Pressure 192/88 H 07/22/20 08:35 Pulse Oximetry 98 07/22/20 08:35 Scores GCS Shalini coma scale eye opening: Spontaneous Shalini coma scale verbal response: Orientated Shalini coma scale motor response: Obey commands Shalini coma scale total score: 15 Course Orders Ordered: ED Orders 07/22/20 08:35 XR humerus LT 2V Stat XR shoulder LT min 2V Stat Reevaluation(s) Reevaluation #1: updated on xray findings and plan. patient defers any pain meds. Time: 09:33 Reevaluation #2: recheck, NVI intact after splint and sling paced by nursing. return precautions discussed. Time: 10:06 Consultations Consultation #1: violet Le for sling. likely need surgical repair and follow up with ortho Time: 09:33 Vital Signs Vital signs: Vital Signs - 8 hr 07/22/20 08:35 07/22/20 08:54 07/22/20 09:00 Temperature 97.2 F L Pulse Rate 66 63 59 L Respiratory Rate 16 Blood Pressure 192/88 H 187/81 H 179/80 H Pulse Oximetry 98 94 95 07/22/20 09:30 Temperature Pulse Rate 61 Respiratory Rate Blood Pressure 184/80 H Pulse Oximetry 94 MDM - Fall Imaging Data Extremity x-ray #1: Radiologist's Impression: [address] [id number] ReportSigned Patient: Sunita Friedman LMR#: [id number]: [id number]:[id number]/Sex: 79 / FDate of Service: 07/22/20Loc: EDAccession Number: [id number] Procedure: XR humerus LT 2V Ordering Provider: Clarice Bonilla D.O. PROCEDURE: XR HUMERUS LT 2V INDICATIONS: humeral pain, s/p fall TECHNIQUE: 2 views of the humerus were acquired. COMPARISON: None. FINDINGS: Bones: There is a comminuted mildly displaced mid left humeral fracture. There is no gross dislocation at the glenohumeral joint. Soft tissues: No suspicious soft tissue calcifications. IMPRESSION: Mildly displaced mid left humeral diaphyseal fracture. Dictated by: Chari Gotti M.D. on 07/22/2020 at 9:04 Approved by: Chari Gotti M.D. on 07/22/2020 at 9:05 Extremity x-ray #2: Radiologist's Impression: [address] [id number] ReportSigned Patient: Sunita Friedman LMR#: [id number]: [id number]:[id number]/Sex: 79 / FDate of Service: 07/22/20Loc: EDAccession Number: [id number] Procedure: XR shoulder LT min 2V Ordering Provider: Clarice Bonilla D.O. PROCEDURE: XR SHOULDER LT MIN 2V INDICATIONS: humeral. shoulder pain, s/p fall TECHNIQUE: 2 views of the shoulder were acquired. COMPARISON: None. FINDINGS: Bones: Mildly displaced comminuted mid left humeral diaphyseal fracture. No dislocation at the glenohumeral joint. Severe acromioclavicular degenerative narrowing. Soft tissues: No suspicious soft tissue calcifications. IMPRESSION: Mildly displaced left humeral diaphyseal fracture. Dictated by: Chari Gotti M.D. on 07/22/2020 at 9:05 Approved by: Chari Gotti M.D. on 07/22/2020 at 9:06 [facility] Narrative Medical decision making narrative: 79-year-old female with mechanical fall, slipped on ice. Patient has humeral fracture in her left upper extremity. Patient is dominant. Images were reviewed with Orthopedic surgery. Patient did not hit head she is anticoagulated but no other concerning injuries at this time. Patient fairly well controlled pain medication. Neurovascularly splint was placed and follow-up Orthopedic surgery in the next week possible surgical repair. Return precautions discussed and all questions answered Discharge Plan Departure Patient Disposition: Home Clinical Impression: Humeral fracture, Fall from ground level Instructions: DI for Humeral Fracture Activity Restrictions/Additional Instructions: Follow-up with Orthopedic surgery in the next 5-7 days, call today or tomorrow for an appointment at the number provided below. There is an office and [place] as well as [place] you can follow-up with either office. You may take Tylenol up to a 1000 mg every 8 hours as needed for pain if this is an adequate you may take the narcotic pain medication instead. Do not take more than 3000 mg of Tylenol or acetaminophen in 24 hours. Take pain medication as prescribed, this medication can make you sleepy do not drive, perform hazardous activities or make any major decisions taking it. This medication will make you constipated take a stool softener such as Colace 1-2 tablets daily until stools are soft. Prescription sent to [facility]. Splint Care: Keep splint clean and dry. Elevated affected body part to decrease swelling. OK to use ice pack on the affected body part. Use for 15-20 minutes each time, for 5-6x per day. If you develop worsening pain, numbness, tingling, discoloration of the affected body part, loosen the splint by loosening the BABITA wrap, and either see your doctor for an urgent re-assessment, or return to the Emergency Department. Return to the Emergency Department for any new or worsening symptoms. Prescriptions: New hydrocodone-acetaminophen [Greenback] 5-325 mg tablet 1 tab PO Q6H PRN (Reason: pain) Qty: 14 RF: 0 No Action venlafaxine [Effexor XR] 150 MG capsule,extended release 24hr 187.5 mg PO DAILY Qty: 0 RF: 0 VITAMIN D (Vitamin D3) 1,000 unit PO BID Qty: 0 RF: 0 atorvastatin [Lipitor] 10 MG tablet 10 mg PO QPM Qty: 0 RF: 0 metformin [Fortamet] 500 MG tablet extended release 24hr 500 mg PO BID Qty: 0 RF: 0 ICaps AREDS2 (copper citrate) 250 mg-200 unit -12.5 mg-1 mg Tablet 1 tab PO BID RF: 0 diltiazem HCl 30 mg Tablet 30 mg PO TID Qty: 90 RF: 1 Xarelto 10 mg Tablet 20 mg PO DAILYCC Qty: 7 RF: 3 Referrals: Wilfred Le MD [Physician] - Elizabeth Garcia MD [Primary Care Provider] -
[2020-07-22 08:54] VITALS: BP 187/81; PULSE 63; O2SAT 94
[2020-07-22 09:00] VITALS: BP 179/80; PULSE 59; O2SAT 95
[2020-07-22 09:30] VITALS: BP 184/80; PULSE 61; O2SAT 94
== END 2020-07-22 10:09 | disposition home or self-care (01) ==
PROVIDERS: Emergency Provider Emergency Medicine; PCP Family Medicine
DX: S42.302A Unspecified fracture of shaft of humerus, left arm, initial encounter for closed fracture (principal); W00.0XXA Fall on same level due to ice and snow, initial encounter; Z79.01 Long term (current) use of anticoagulants
CPT/HCPCS: 29125; 73030; 73060; 99283; 99284

== ENCOUNTER → 2020-07-27 14:44 | Outpatient (CLI) | payer MEDICARE, SELFPAY ==
[2020-03-12 15:55] VITALS: BMI 29.2
[2020-07-27 16:09] LABS: Add Manual Diff / Slide Review NO; Basophils Absolute Auto 100 /uL (0-100); Basophils Percent Auto 0.5 % (0-2); Eosinophils Absolute Auto 200 /uL (0-450); Eosinophils Percent Auto 2.1 % (2-4); Hematocrit 40.8 % (36-46); Hemoglobin 13.3 g/dL (12.0-16.0); Lymphocytes Absolute Auto 3300 /uL (1100-4500); Lymphocytes Percent Auto 29.8 % (25-40); Mean Corpuscular HGB Conc 32.6 % (30-36); Mean Corpuscular Hemoglobin 29.9 PG (26-34); Mean Corpuscular Volume 91.7 fL (80-100); Monocytes Absolute Auto 700 /uL (0-900); Monocytes Percent Auto 6.3 % (3-14); Neutrophils Absolute Auto 6900 /uL (1500-7000); Neutrophils Percent Auto 61.3 % (50-75); Platelet Count 276 X10^3/uL (150-400); Red Blood Cell Count 4.45 X10^6/uL (4.0-5.2); Red Cell Distribution Width 13.5 % (11.6-14.8); White Blood Cell Count 11.2 X10^3/uL (4.5-11.0)
[2020-07-27 16:13] LABS: Hemoglobin A1C% w Est Avg Glu 6.5 % (4.0-6.0)
[2020-07-27 16:19] LABS: Blood Urea Nitrogen 17 mg/dL (7-17); Calcium 9.7 mg/dL (8.4-10.2); Carbon Dioxide 28 mmol/L (22-32); Chloride 103 mmol/L (98-107); Estimated Glomerular Filt Rate > 60.0 mL/min (>60); Glucose 93 mg/dL (80-110); HEMOLYSIS < 15 (0-50); Potassium 3.9 mmol/L (3.4-5.1); Sodium 138 mmol/L (137-145)
== END ==
PROVIDERS: PCP Family Medicine; Referring Provider Orthopaedic Surgery Adult Reconstructive Orthopaedic Surgery; Visit Provider Orthopaedic Surgery Adult Reconstructive Orthopaedic Surgery
DX: Z01.812 Encounter for preprocedural laboratory examination (principal); Z01.818 Encounter for other preprocedural examination; R73.9 Hyperglycemia, unspecified; Z20.822 Contact with and (suspected) exposure to COVID-19
CPT/HCPCS: 36415; 80048; 83036; 85025; 87635; 93005; C9803

== ENCOUNTER → 2020-07-27 15:42 | Outpatient (CLI) | payer MEDICARE, SELFPAY ==
[2020-03-12 15:55] VITALS: BMI 29.2
[2020-07-27 16:15] LABS: COVID19 -Nasal RAPID Negative (Negative)
== END ==
PROVIDERS: PCP Family Medicine; Visit Provider Physician Assistant
DX: Z01.812 Encounter for preprocedural laboratory examination (principal); Z20.822 Contact with and (suspected) exposure to COVID-19
CPT/HCPCS: 87635

== ENCOUNTER 2020-07-29 10:57 | Day surgery (SDC) | payer MEDICARE, SELFPAY ==
[2020-03-12 15:55] VITALS: BMI 29.2
[2020-07-29] VITALS (17 sets, daily range): BP systolic 130–191; BP diastolic 62–87; PULSE 73–101; RESP 12–18; TEMP 36.4–37.3; O2SAT 87–997; BMI 29.2
--- NOTE | 2020-07-29 | DI.RAD.S_ITS ---
PROCEDURE: XR HUMERUS LT 2V INDICATIONS: humeral nailing TECHNIQUE: 4 views of the humerus were acquired. COMPARISON: , , XR HUMERUS LT 2V, 07/22/2020, 8:44. FINDINGS: Intra operative fluoroscopic images demonstrate humeral fixation. There is good anatomic alignment. Mid humeral fracture is noted. IMPRESSION: Intraoperative humeral fixation as above. Dictated by: Chari Gotti M.D. on 07/29/2020 at 16:19 Approved by: Chari Gotti M.D. on 07/29/2020 at 16:22
--- NOTE | 2020-07-29 14:26 | PM.PREOP ---
Pre-operative Note COVID-19 COVID-19 status: Negative Result date/Date tested (Pos, Neg/Pending): 07/27/20 Interval Note History & Physical reviewed/Exam performed by Physician: Yes Changes to H&P: No H&P completed within 30 days and has changed as indicated here:: Plan for left humerus IMN for surgical stabilization.
[2020-07-29] MEDS: CEFAZOLIN 2 GM/100 ML FROZ.PIGGY IV ×2 (14:38→23:45)
--- NOTE | 2020-07-29 15:06 | SUR.OPER ---
Beach chair with Skytron positioner. Lower body on padded OR bed. Head in foam padded head cradle, secured with straps. Non-operative arm secured <90 degrees abduction. Pillow under knees, gel pad under heels. Safety belt at thigh. Cloth tape over blanket over lower legs.
--- NOTE | 2020-07-29 17:15 | PM.OP.1 ---
Operative Date/Time/Diagnoses Date of procedure: 07/29/20 Time of procedure: 17:15 Pre-op diagnosis: Left humeral shaft fracture Post-op diagnosis: same Procedure & Clinicians Procedure: Antegrade intramedullary nail of the left humerus Same procedure as scheduled: Yes Indications: Transverse midshaft left humerus fracture Surgeon: Wilfred Le Potter Or Ceramic Artist: Bryant Melo Anesthesia Type: General Operative Notes Findings: Midshaft transverse humerus fracture with 2 butterfly segments. Closure Type: primary Specimen(s): none sent Prosthetic devices, grafts, tissues, transplants, or devices: Rand affix this natural Nail 7.5 mm x 260 mm 0 mm humerus nail cap 22 mm bolt 24 mm bolt 32 mm bolt 42 mm blunt-tip screw Estimated Blood Loss (mL): 200 Procedure in detail: Patient was met in the preoperative holding area where the site and side of surgery were marked by . Informed consent had been reviewed in clinic was also reviewed the preoperative holding area. The risks and benefits of surgery were reviewed including the risk of damage to local structures such as vessels and nerves, malunion nonunion, need for future surgeries, incomplete relief of symptoms, need for future surgeries, shoulder stiffness, etc.. Patient demonstrates understanding wishes to proceed. Patient was then brought back to the operating room where she was induced under general anesthesia. She was then placed in beach chair position. The left upper extremity then prepped and draped normal soft fashion. Surgical time-out was performed verifying site and side of surgery as well as any the patient. A 3 cm long incision at the anterolateral corner of the acromion was made in the skin using 10. Blade. Dissection down to the level of the deltoid was then performed using electrocautery. Deltoid fibers were split in length their fibers and retracted using a self retainer. This gave us exposure this supraspinatus. Supraspinatus was then split in length was fibers to give us access to the humeral head. The leaflets were tagged. A sharp tip guidewire was started using a mallet under fluoroscopic guidance. The guidewire was placed just medial to the greater tuberosity. And centered within the canal. A soft tissue protector sleeve was then placed and the guidewire was swallowed with opening Reamer. A ball-tipped guidewire was then passed which had a slight bend the tip. This allowed for directional aiming and we will across the fracture gap and seated into the distal aspect of the humerus. This measured a 28 mm. We plan on compressing through the fracture as we selected 26 mm nail. We began reaming with an 8 mm Reamer and went up by 0.5 until we got to a 9 mm Reamer taking care not to displace the butterfly segments at the fracture site. We then selected a 7.5 mm by turned 60 mm affix this nail. This was then placed under fluoroscopic guidance. A distal interlocking bolt was then placed. The nail was then backslapped to close the fracture gap however we let the shoulder we are already protruding proximally with the nail. Therefore the distal locking bolt was removed in the nail was countersunk approximately 45 mm deeper. The other lateral base full was then placed taking care to possibly with the drill tip as well as blunt dissect down to the level of the bone. This was placed using perfect um[place] tribe technique. We then placed a ADP screw again taking care to protect the muscular cutaneous nerve I blunt dissecting using oscillating drill. Once these 2 distal interlocking bolts were placed we backslapped the nail to get compression of the fracture site we then used the aiming arm to place the 2 static bolts. The distal pole was bicortical proximal screw was a blunt-tip screw taking care not to penetrate into the joint. Once this was completed the aiming jig was removed and a 0 mm nail end cap was placed. All the incisions were then thoroughly irrigated. The rotator cuff was then repaired with the tag sutures as well as with a 1. Ethibond. The deltoid was then repaired using Ethibond as well. Subcutaneous tissue was then closed using a 2-0 Vicryl and nylon on skin. Complications: none Post-operative Condition: stable Disposition: PACU Plan for aftercare: No limits in range of motion of the left shoulder or elbow or hand. 5 lb weight limit on the left upper extremity.
[2020-07-29] MEDS: LACTATED RINGERS 1,000 ML 42 ML IV (17:30)
[2020-07-29] MEDS: fentaNYL 100 MCG/2 ML INJ IV ×2 (17:46→18:00)
--- NOTE | 2020-07-29 21:03 | SUR.PHASEI ---
Late entry: Pt arrived to PACU, awoke with high level of pain to l shoulder and l elbow. Dr. Le checked pt at bedside, then allowed Dr. Devries to do block. L shoulder dressing remained c/d/i with arm in a sling. Ice packs to shoulder and elbow. Pt still with pain, medicated with fentanyl and oxycodone. When pain tolerable report called to [facility]. Pt transported up to room on 02 and left in stable condition.
--- NOTE | 2020-07-29 21:08 | SUR.PHASEI ---
Nerve block: Ultrasound and block cart brought to PACU, pt on monitors and oxygen. Block start time 143 and end time 1758. Pt tolerated procedure well and remained in SR.
[2020-07-29] MEDS: ATORVASTATIN 20 MG TABLET 10 MG PO (21:11)
[2020-07-29] MEDS: dilTIAZem 30 MG TABLET PO (21:12)
[2020-07-29] MEDS: ACETAMINOPHEN 325 MG TABLET 975 MG PO (21:12)
[2020-07-29] MEDS: LACTATED RINGERS 1,000 ML 75 ML IV (21:14)
--- NOTE | 2020-07-29 22:54 | PC.NURSE ---
Admit/Evening Shift Note- Patient arrived to room via bed at 1845. Patient alert and oriented and able to make needs known to staff. Admit questions done, medications reviewed, physical assessment and skin check completed. Patient oriented to bed and bed controls, room, bathroom, lights, phone, menu, and call riojas/tv remote. Left arm in sling, bulky dressing c/d/i, ice packes in place on should and under elbow.Safety measures in place. Patient agrees to call for assistance. Bed alarm activated. Will continue to monitor.
[2020-07-30] MEDS: OXYCODONE IR 5 MG TABLET PO ×3 (02:49→11:21)
[2020-07-30 05:00] VITALS: BP 150/52; PULSE 68; RESP 18; TEMP 37; O2SAT 94
[2020-07-30 06:07] LABS: Hematocrit 35.6 % (36-46); Hemoglobin 11.8 g/dL (12.0-16.0); Mean Corpuscular HGB Conc 33.2 % (30-36); Mean Corpuscular Hemoglobin 30.6 PG (26-34); Mean Corpuscular Volume 92.4 fL (80-100); Platelet Count 245 X10^3/uL (150-400); Red Blood Cell Count 3.86 X10^6/uL (4.0-5.2); Red Cell Distribution Width 13.6 % (11.6-14.8); White Blood Cell Count 10.8 X10^3/uL (4.5-11.0)
[2020-07-30] MEDS: CEFAZOLIN 2 GM/100 ML FROZ.PIGGY IV (06:27)
[2020-07-30 07:50] VITALS: BP 153/68; PULSE 63; RESP 16; TEMP 37.1; O2SAT 91
--- NOTE | 2020-07-30 08:07 | PM.PNPO.1 ---
Subjective Subjective Date Patient Seen: 07/30/20 Time Patient Seen: 08:07 Interval history: POD #1 s/p IM nail of left humerus with Dr. Le. Patient's pain is well controlled with Oxycodone. She does complain of muscle spasms. Exam Vital Signs (past 8 hours): - 07/30/20 05:00 Temperature 98.6 F Pulse Rate 68 Respiratory Rate 18 Blood Pressure 150/52 H Pulse Oximetry 94 Oxygen Delivery Method CPAP Oxygen Flow Rate 2 Narrative Exam Narrative: Patient lying in bed in NAD. She is alert and oriented X3. Proximal Dressing on left arm is CDI. Distal dressing is saturated with serosanguinous drainage. Radial pulses symmetrical. SILT throughout BLEs. Objective Labs Result Diagrams: 07/30/20 05:44 Labs: Laboratory Results - last 24 hr 07/30/20 05:44 WBC 10.8 RBC 3.86 L Hgb 11.8 L Hct 35.6 L MCV 92.4 MCH 30.6 MCHC 33.2 RDW 13.6 Plt Count 245 PFSH Medical History Closed displaced transverse fracture of shaft of left humerus Depression Diabetes Eye disorder GERD (gastroesophageal reflux disease) High cholesterol Hypertension Sleep apnea with use of continuous positive airway pressure (CPAP) Surgical History H/O knee surgery History of bunionectomy History of tonsillectomy Hx of hysterectomy, total Social History household members: spouse Smoking Status: Never smoker alcohol intake: current Assessment & Plan Post-op Postoperative Procedures: Procedures Operation Date: 07/29/20 13:15 Actual Procedures Side Surgeon p Intramedullary Nailing Humerus Left Wilfred Le MD No limitations to ROM of shoulder, elbow, and hand. She is not to lift more than 5 lbs. Restart Xarelto today. Continue current pain control. Likely DC home with today. Quality VTE Deep Vein Thrombosis/Pulmonary Embolism Present on Admission: No
[2020-07-30] MEDS: dilTIAZem CD 120 MG CAP PO (08:19)
[2020-07-30] MEDS: VENLAFAXINE ER 37.5 MG CAP PO (08:19)
[2020-07-30] MEDS: METFORMIN HCL 500 MG TABLET PO (08:19)
[2020-07-30] MEDS: VENLAFAXINE ER 75 MG CAP 150 MG PO (08:19)
[2020-07-30] MEDS: RIVAROXABAN 10 MG TABLET 20 MG PO (08:19)
[2020-07-30] MEDS: ACETAMINOPHEN 325 MG TABLET 975 MG PO (08:19)
--- NOTE | 2020-07-30 10:00 | PT.IIE ---
Current Diagnoses Displaced transverse fracture of shaft of humerus, left arm, initial encounter for closed fracture (07/29/20) Surgery Performed Operation Date: 07/29/20 13:15 Actual Procedures p Intramedullary Nailing Humerus(Left) - Wilfred Le MD Surgical History (Last Reviewed 07/30/20 @ 08:08 by Yuliet Hitchcock PA-C) H/O knee surgery History of bunionectomy History of tonsillectomy Hx of hysterectomy, total Medical History (Last Reviewed 07/30/20 @ 08:08 by Yuliet Hitchcock PA-C) Closed displaced transverse fracture of shaft of left humerus Depression Diabetes Eye disorder GERD (gastroesophageal reflux disease) High cholesterol Hypertension Sleep apnea with use of continuous positive airway pressure (CPAP) Physical Therapy Inpatient Evaluation/Re-Eval M1 PT/OT-IP Prior Functional Status Start: 07/30/20 08:49 Freq: NEEDED Status: Active Protocol: Document 07/30/20 09:55 AW (Rec: 07/30/20 11:25 AW [id number]) Medical Review Prior Functional Status Medical History Reviewed Yes Communication WNL Mobility and Gait Pt is right-handed. She fell on the ice on 07/22/20 and sustained a left humeral shaft fracture. She is one day post IM nail. She is typically independent with all mobility. Activities of Daily Living and IADL's Independent with all ADL's. 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 Social History Household Members spouse Living Arrangements House Number of Floors (Floors) One Floor Number of Stairs To Enter/Railing? level entrance Home Environment Standard Height Toilet,Walk in Shower Home Equipment Grab Bars In Shower Employment Status Retired Additional Social History Comment Pt lives with her spouse, Tera, who is retired and will be available to assist at home. M2 PT-IP Current Condition Start: 07/30/20 08:49 Freq: NEEDED Status: Active Protocol: Document 07/30/20 09:55 AW (Rec: 07/30/20 11:25 AW [id number]) Physical Therapy Current Condition Current Condition Evaluation Date 07/30/20 Treatment Diagnosis L humerus fx s/p IM nail; difficulty in walking Onset Date 07/22/20 Precautions Brace soft shoulder sling for comfort Other Precautions Per op note, no lifting >5#. There are no ROM restrictions. M3 PT-IP Subjective Start: 07/30/20 08:49 Freq: NEEDED Status: Active Protocol: Document 07/30/20 09:55 AW (Rec: 07/30/20 11:25 AW [id number]) Subjective Physical Therapy Visit Type Type Initial Evaluation Visit Start Time 09:26 Visit Stop Time 09:55 Total Visit Minutes 29 Number of PSYCHOTHERAPIST COUNSELOR Visits 0 Physical Therapy Visit Comments Patient Comments Pt is willing to participate with PT Patient Goals Pt hopes to return to regular activities including gardening . Therapy Pain Assessment Pain When Pain Assessed During Mobility Pain Present Pain Present Pain Reported Location l elbow Intensity 4 Scale Used Numeric (0 - 10) Pain Management Techniques Apply Cold,Modification of Treatment,Timing of Activity with Medications M4 PT-IP Mobility and Gait Start: 07/30/20 08:49 Freq: NEEDED Status: Active Protocol: Document 07/30/20 09:55 AW (Rec: 07/30/20 11:33 AW [id number]) PT-Bed Mobility Assessment Supine to Sit Supine to Sit Contact Guard Assistance Scooting Scooting to Edge of Bed Standby Assistance PT-Transfer Assessment Sit to and From Stand Sit to and from Stand Standby Assistance Equipment Transfer Assistive Device Gait Belt Orthotic/Prosthetic Devices or Brace: Yes Transfers Transfer Destination Chair,Toilet Transfer Technique Stand Step Pivot Transfer Ability Level of Assist Standby Assistance Comments Mobility Comments Pt was reclined in the bed as PT arrived. She was wearing an ill-fitting soft sling on her left shoulder. She completed supine to sit CGA. She stood from the bed and walked to the sink SBA for education on proper sling fit and donning/ doffing. Pt then ambulated around the room for a total of 75 feet with good safety awareness SBA. She practiced toilet and chair transfers without need for more than SBA . Pt then transferred back to supine SBA. She was left in the bed with call light and all needs in reach. Gait Assessment Gait Gait Assistance Required: Standby Assistance Distance (Feet) 75 Able to Maintain Weight Bearing Status Yes During Gait Assistive Devices Assistive Device None,Gait Belt Orthotic/Prosthetic Devices or Brace: Yes Gait Deviations General Gait Pattern Antalgic,Decreased Stride Length,Decreased Feet Clearance Factors Limiting Gait Function Factors Limiting Gait Function Decreased Activity Tolerance, Poor Balance Comments Gait Comments Gait speed was slow but sufficient for safe household mobility. Stair Climbing Assessment Comments Stair Climbing Comments Not assessed. No stairs at home. PT-Balance Assessment Sitting Balance and Reactions Static Sitting Balance Ability Good Dynamic Sitting Balance Ability Good Standing Balance and Reactions Static Standing Balance Ability Good Dynamic Standing Balance Ability Good Device Used no AD M5 PT-IP Objective Assessments Start: 07/30/20 08:49 Freq: NEEDED Status: Active Protocol: Document 07/30/20 09:55 AW (Rec: 07/30/20 11:33 AW [id number]) Orientation Orientation/Cognition Level of Alertness Alert Orientation Name,Day of Week,Place, Situation Language Function Ability Hard of Hearing Safety Awareness Understands Safety Issues Memory Description No Deficits Noted Gross Range of Motion Upper Extremity ROM Assessment Left Impaired Impairments RUE WNL Lower Extremity ROM Assessment Within Functional Limits Strength Upper Extremity Strength Assessment Left Impaired Shoulder NT Elbow 3-/5 Wrist 4-/5 Hand 4-/5 Lower Extremity Strength Assessment Within Functional Limits Coordination Assessment Gross Coordination Gross Coordination WNL Sensation Assessment Sensation Gross Sensation WNL Muscle Tone Muscle Tone WNL Yes M6 PT-IP Treatment Start: 07/30/20 08:49 Freq: NEEDED Status: Active Protocol: Document 07/30/20 09:55 AW (Rec: 07/30/20 11:33 AW [id number]) Physical Therapy Treatment Exercises Exercises Shoulder Pendulums,Shoulder Flexion,Elbow Flexion/ Extension,Wrist ROM,Hand ROM Education Education Provided Precautions,Weight Bearing Status,Safety Brace Education [place],Patient Other Treatments Other Treatment Performed Provided education on role of PT, weightbearing status, lifting restrictions, and importance of AAROM LUE. M7 PT-IP Assessment and Plan Start: 07/30/20 08:49 Freq: NEEDED Status: Active Protocol: Document 07/30/20 09:55 AW (Rec: 07/30/20 11:33 AW [id number]) PT Summary Assessment and Plan Potential Rehabilitation Potential Good Status of Condition at Evaluation Stable Summary Impairments Pain,ROM,Strength,Bed Mobility ,Transfers Assessment Summary Sunita is a right-handed woman seen for PT evaluation on POD1 following IM nail for left humerus fracture. She is independent in all regards at baseline. On evaluation, pt required CGA at most for mobility. She verbalized understanding of lifting restriction and was able to perform AAROM LUE for self- care. Pt was encouraged to seek outpatient PT to maintain LUE ROM and to improve strength. She is safe to discharge home with spouse assist. Frequency of Treatment Frequency Of Treatment Discharge Recommendations To Nursing Amount of Assist Needed Standby Assistance Discharge Recommendations PT Discharge Recommendations Home with Assistance, Outpatient PT Transportation Needs at Discharge Private Vehicle
--- NOTE | 2020-07-30 11:30 | PC.NURSE ---
Pt is dressed and ready for discharge home with Spouse. Went over d/c instructions with Pt-discussed d/c meds, time of last dose, medicated Pt with Oxycodone 5mg for drive home, reviewed stroke education, s/s of infection and care of dressings. Pt to follow up with Ortho in 1 week and will call for her appointment. Reminded Pt that she cannot drive while on narcotics and to drink plenty of fluids to prevent constipation or dehydration. Pt out via w/c by [employer] to POV to have Spouse take her home. All belongings with Pt.
--- NOTE | 2020-07-30 11:54 | CM.DANOTE ---
Discharge Planning/Care Management DCP: assessment: case received, EMR reviewed. Discussed in Team Rounds. PT was to see pt for first time today. Pt is a 79 year old female who admitted for a scheduled surgery with Dr. Le. PCP: Dr. Philip Garcia [facility] A check in now shows that pt did work with PT, her Tera is retired and available for supportive care as she recovers. She was cleared for home setting by PT and ok'd for d/c by the orthopedic team. She left for home in company of her earlier this morning. Advanced directive, confirm from FAMILY Start: 07/29/20 19:11 Freq: Q24H Status: Discharge Protocol: Document 07/29/20 19:11 AGW (Rec: 07/29/20 21:35 AGW [id number]) Advance Directive, confirm on record Time 19:00 Person contacted Copy received No CM Discharge Assessment Start: 07/30/20 11:53 Freq: Status: Active Protocol: Document 07/30/20 11:54 ITV (Rec: 07/30/20 11:54 ITV [id number]) Discharge Planning Assessment Advance Directives? Yes Advance Directives on File No: Requested that pt asks to bring them in History Provided By Medical Record Prior Living Arrangements House Household Members spouse Independent with ADL's Yes Is patient alert and oriented? Yes Pre-Anesthesia Assessment Start: 07/28/20 09:28 Freq: Status: Discharge Protocol: Document 07/28/20 09:28 VLJ (Rec: 07/28/20 09:51 [facility] [id number]) Pre-Anesthesia Assessment Patient Information Reviewed Via Chart Review Diagnostic Results BMP/CMP,CBC,EKG Comment A1c, Covid 07/27/20 at Primary Care Provider Elizabeth Garcia Seen Specialist in Last 12 Months Yes Specialist Seen Emergency,Orthopedist Preferred Language Albanian Height 160.02 cm Hx Anesthesia Reactions No Hx Family Anesthesia Reaction No Hx Malignant Hyperthermia No Hx Blood Transfusion Reaction No Anesthesia Review Requested No Associate Justice No alcohol intake current alcohol intake frequency a few times a week Smoking Status Never smoker Substance Use Type does not use History of Falling (Recent or History of Yes ) Ambulatory Aid None/bed rest/nurse assist Comment Left humerus fracture/splint Hx Sleep Apnea Yes CPAP/BIPAP use prescribed and used routinely Anti-Coagulant Therapy Yes: Xeralto Cardiac Testing Yes: Echo IH 03/24 EF 60-65% Hx Pacemaker/ICD No Hx Urinary Self Catheterization No Diabetes Yes Patient No Lactating No Presence of External or Internal Medical Yes: screws in left foot Devices Marital Status Lives With spouse Patient Discharge Plan Description Return Home Do You Have Any Spiritual Beliefs That No May Affect Your HC Choices? Do You Have Any Cultural Practices That No May Affect Your HC Choices? Emergency Contact Name Tera Derasjovana Emergency Contact Advance Directives? Yes Advance Directives on File No: Requested that pt asks to bring them in Power of Registered Nursing Professor Yes Power of Registered Nursing Professor Name Tera Friedman Power of Registered Nursing Professor
== END 2020-07-30 11:34 | disposition home or self-care (01) ==
LOC: OR 11:00 → AC 13:35
PROVIDERS: PCP Family Medicine; Referring Provider Orthopaedic Surgery Adult Reconstructive Orthopaedic Surgery; Visit Provider Orthopaedic Surgery Adult Reconstructive Orthopaedic Surgery
PROC: (CPT 23615; principal; 2020-07-29 13:15)
DX: S42.322A Displaced transverse fracture of shaft of humerus, left arm, initial encounter for closed fracture (principal); W00.0XXA Fall on same level due to ice and snow, initial encounter; Y93.K1 Activity, walking an animal; I10 Essential (primary) hypertension; K21.9 Gastro-esophageal reflux disease without esophagitis; E11.9 Type 2 diabetes mellitus without complications; I48.91 Unspecified atrial fibrillation; F32.9 Major depressive disorder, single episode, unspecified; Z79.84 Long term (current) use of oral hypoglycemic drugs
CPT/HCPCS: 24516; 36415; 64450; 73060; 76000; 82962; 85027; 94760; 97161; J0690; J2405; J2704; J3010